=== PATIENT | female | born 1995 | race Hispanic/Latino ===

== ENCOUNTER 2017-10-14 10:06 | Observation (INO) | payer MEDICAID ==
[~2017-10-14] VITALS: Ht 167.6 cm; Wt 62.1 kg
[~2017-10-14 10:06] MED LIST: NITR100C4 PO
[2017-10-14 11:10] VITALS: BP 114/72
== END 2017-10-14 11:25 | disposition home or self-care (01) ==
LOC: EDH 10:06 → LDH 10:07
DX: O42.92 Full-term premature rupture of membranes, unspecified as to length of time between rupture and onset of labor (principal); Z3A.38 38 weeks gestation of pregnancy
CPT/HCPCS: 99285; G0378

== ENCOUNTER 2017-10-18 09:10 | Inpatient (IN) | payer MEDICAID ==
[2017-10-17 15:50] LABS: BASOPHILS % (AUTO) 0.5 % (0.0-5.0); EOSINOPHILS % (AUTO) 0.5 % (0.0-8.0); HEMATOCRIT 30.2 % (36-48); LYMPHOCYTES % (AUTO) 18.9 % (21.0-51.0); MEAN CORPUSCULAR HEMOGLOBIN 25.2 pg (27.0-33.0); MEAN CORPUSCULAR HGB CONC 32.8 g/dL (32.0-36.0); MEAN CORPUSCULAR VOLUME 77.1 fL (79-99); NEUTROPHILS % (AUTO) 72.1 % (40.0-77.0); NUCLEATED RED BLOOD CELLS 0.1 % (0.0-0.19); PLATELET COUNT (AUTO) 383 K/uL (130-400); RED BLOOD CELL COUNT(AUTO) 3.92 MIL/uL (4.00-5.50); RED CELL DISTRIBUTION WIDTH 16.6 % (11.0-15.5); WHITE BLOOD COUNT (AUTO) 8.7 K/uL (4.8-10.8)
[2017-10-17 16:04] LABS: CREATININE 0.6 mg/dL (0.5-1.5); POTASSIUM 3.9 mmol/L (3.5-5.1)
[2017-10-17 16:06] LABS: INR 0.88 (0.85-1.15); PARTIAL THROMBOPLASTIN TIME 23.3 SEC (26.3-35.5); PROTHROMBIN TIME 9.3 SEC (9.6-11.6)
[2017-10-17 16:08] LABS: ALBUMIN 2.5 g/dL (3.5-5.0); BILIRUBIN,TOTAL 0.3 mg/dL (0.2-1.0); TOTAL PROTEIN, SERUM 6.8 g/dL (6.0-8.3); URIC ACID 3.4 mg/dL (2.6-7.2)
[2017-10-18] MEDS ORDERED: CEFAZOLIN SODIUM 1 GM VIAL IVP PRN (09:30)
[2017-10-18] MEDS ORDERED: CALDOLOR 800MG+NS 250ML 250 ML IV PRN (09:30)
[2017-10-18] MEDS ORDERED: OXYTOCIN 10 USP UNITS/ML ONE ×3 (10:54→14:18)
[2017-10-18] MEDS ORDERED: LACTATED RINGERS 1000ML 1,000 ML IV ONE ×2 (10:58→13:58)
[2017-10-18] MEDS ORDERED: DURAMORPH PF1 MG/ML 10ML AMP IV ONE (12:05)
[2017-10-18] MEDS ORDERED: FENTANYL CITRATE PF 50 MCG/1 ML 2ML VIAL ONE (12:05)
[2017-10-18] MEDS ORDERED: OXYTOCIN-LR 20 UNITS/1000 ML 1,000 ML IV PRN ×2 (13:13→16:48)
[2017-10-18] MEDS ORDERED: DIPH,PERTUSS(ACELL),TET VAC/PF 0.5 ML VIAL IM PRN (13:15)
[2017-10-18] MEDS ORDERED: SODIUM CHLORIDE 0.9% 10 ML VIAL IVP PRN ×2 (13:15→17:00)
[2017-10-18] MEDS ORDERED: BUTORPHANOL TARTRATE 2 MG/ML ONE (13:17)
[2017-10-18] MEDS ORDERED: PHENYLEPHRINE HCL 10 MG/ML 1ML VIAL IV ONE (14:18)
[2017-10-18] MEDS ORDERED: ONDANSETRON HCL 4 MG/2 ML VIAL ONE (14:18)
[2017-10-18 16:05] VITALS: BP 104/62
[2017-10-18] MEDS ORDERED: MEPERIDINE-PF 75 MG/ML SYG IM PRN (17:00)
[2017-10-18] MEDS ORDERED: DEXTROSE 5 %-0.45 % NACL 1,000 ML IV PRN (17:00)
[2017-10-18] MEDS ORDERED: PROMETHAZINE HCL 25 MG/ML 1ML AMPULE IM PRN ×2 (17:00→18:45)
[2017-10-18] MEDS ORDERED: DiphenhydrAMINE HCL 50 MG/ML VIAL IVP PRN (18:45)
[2017-10-18] MEDS ORDERED: ONDANSETRON HCL 4 MG/2 ML VIAL IVP PRN (18:45)
[2017-10-18] MEDS ORDERED: HYDROCODONE/ACETAMINOPHEN 5/325 MG TAB PO PRN (18:45)
[2017-10-18] MEDS ORDERED: MORPHINE SULFATE 2 MG/ML 1ML SYG IVP PRN (18:45)
[2017-10-18] MEDS ORDERED: EPHEDRINE SULFATE 50 MG/ML AMPULE IVP PRN (18:45)
[2017-10-18] MEDS ORDERED: NALOXONE HCL 0.4 MG/1 ML ML IVP PRN ×2 (18:45)
[2017-10-18] MEDS ORDERED: ONDANSETRON HCL 4 MG/2 ML 8 MG in SODIUM CHLORIDE 0.9% 50 ML IVP NR (18:45)
[2017-10-18] MEDS ORDERED: METOCLOPRAMIDE 10 MG/2 ML VIAL IVP PRN (18:45)
[2017-10-18 19:56] VITALS: BP 112/60
[2017-10-18] MEDS ORDERED: CEFAZOLIN SODIUM 1 GM VIAL IVP SCH (20:15)
[2017-10-18] MEDS ORDERED: CEFAZOLIN 2GM / 50 ML 50 ML IV SCH (20:15)
[2017-10-18] MEDS: ONDANSETRON HCL 4 MG/2 ML VIAL IVP PRN (21:01)
[2017-10-18] MEDS: HYDROCODONE/ACETAMINOPHEN 5/325 MG TAB PO PRN (21:02)
[2017-10-18] MEDS: CALDOLOR 800MG+NS 250ML 250 ML IV SCH (21:25)
[2017-10-18] MEDS: DEXTROSE 5 %-0.45 % NACL 1,000 ML IV PRN (21:28)
[2017-10-18 23:31] VITALS: BP 104/64
[2017-10-19] MEDS ORDERED: CEFAZOLIN 2GM / 50 ML 50 ML IV SCH
[2017-10-19] MEDS ORDERED: CALDOLOR 800MG+NS 250ML 250 ML IV SCH (01:00)
[2017-10-19] MEDS: ONDANSETRON HCL 4 MG/2 ML VIAL IVP PRN (01:52)
[2017-10-19 02:49] VITALS: BP 116/65
[2017-10-19] MEDS: CALDOLOR 800MG+NS 250ML 250 ML IV SCH (04:41)
[2017-10-19 06:15] LABS: HEPATITIS Bs ANTIGEN SCREEN P Negative (Negative)
[2017-10-19] MEDS: DEXTROSE 5 %-0.45 % NACL 1,000 ML IV PRN (06:52)
[2017-10-19 06:55] LABS: HEMATOCRIT 25.6 % (36-48); MEAN CORPUSCULAR HEMOGLOBIN 25.1 pg (27.0-33.0); MEAN CORPUSCULAR HGB CONC 32.3 g/dL (32.0-36.0); MEAN CORPUSCULAR VOLUME 77.8 fL (79-99); PLATELET COUNT (AUTO) 263 K/uL (130-400); RED BLOOD CELL COUNT(AUTO) 3.29 MIL/uL (4.00-5.50); WHITE BLOOD COUNT (AUTO) 9.6 K/uL (4.8-10.8)
[2017-10-19 08:15] VITALS: BP 101/54
[2017-10-19] MEDS ORDERED: ACETAMINOPHEN-CODEINE 300/30MG TAB PO PRN (09:00)
[2017-10-19] MEDS ORDERED: DIPHENHYDRAMINE HCL 25 MG CAPSULE PO PRN (09:00)
[2017-10-19] MEDS ORDERED: LANOLIN 30GM OINTMENT TP PRN (09:00)
[2017-10-19] MEDS ORDERED: BISACODYL 10 MG SUPP.RECT RC PRN (09:00)
[2017-10-19] MEDS: LIDOCAINE 5% TOPICAL PATCH TP SCH ×2 (09:12→10:07)
[2017-10-19] MEDS: SIMETHICONE 80 MG TAB.CHEW PO PRN ×4 (09:12→20:36)
[2017-10-19] MEDS: DOCUSATE SODIUM 100 MG CAP PO SCH ×2 (09:12→20:36)
[2017-10-19] MEDS: HYDROCODONE/ACETAMINOPHEN 5/325 MG TAB PO PRN (09:15)
[2017-10-19 12:16] VITALS: BP 105/66
[2017-10-19] MEDS: IBUPROFEN 800 MG TAB PO SCH (15:24)
[2017-10-19 15:51] VITALS: BP 99/59
[2017-10-19] MEDS: ACETAMINOPHEN-CODEINE 300/30MG TAB PO PRN (18:22)
[2017-10-19] MEDS: DIPH,PERTUSS(ACELL),TET VAC/PF 0.5 ML VIAL IM SCH (18:42)
[2017-10-19 19:35] VITALS: BP 108/69
[2017-10-19 23:30] VITALS: BP 115/63
[2017-10-20] MEDS: IBUPROFEN 800 MG TAB PO SCH ×2 (00:20→08:44)
[2017-10-20] MEDS: ACETAMINOPHEN-CODEINE 300/30MG TAB PO PRN (03:07)
[2017-10-20 03:10] VITALS: BP 122/78
[2017-10-20 07:40] VITALS: BP 144/78
[2017-10-20] MEDS: SIMETHICONE 80 MG TAB.CHEW PO PRN ×2 (08:42→13:07)
[2017-10-20] MEDS: DOCUSATE SODIUM 100 MG CAP PO SCH (08:42)
[2017-10-20] MEDS: LIDOCAINE 5% TOPICAL PATCH TP SCH (08:46)
[2017-10-20] MEDS: DIPH,PERTUSS(ACELL),TET VAC/PF 0.5 ML VIAL IM SCH (09:00)
[2017-10-20 11:46] VITALS: BP 121/70
[2017-10-20] MEDS ORDERED: DOCU240C80 PO (13:40)
[2017-10-20] MEDS ORDERED: MO8B PO (13:41)
[2017-10-20] MEDS ORDERED: ACET1TAB12 PO (13:42)
== END 2017-10-20 14:15 | disposition home or self-care (01) | DRG 540 ==
LOC: LDH 09:10 → WSH 15:20
PROC: 3E0234Z Introduction of Serum, Toxoid and Vaccine into Muscle, Percutaneous Approach (ICD-10-PCS; 2017-10-18)
PROC: 10D00Z1 Extraction of Products of Conception, Low, Open Approach (ICD-10-PCS; principal; 2017-10-18 12:00)
DX: O36.5930 Maternal care for other known or suspected poor fetal growth, third trimester, not applicable or unspecified (principal); O41.03X0 Oligohydramnios, third trimester, not applicable or unspecified; O34.211 Maternal care for low transverse scar from previous cesarean delivery; D64.89 Other specified anemias; O99.02 Anemia complicating childbirth; Z3A.38 38 weeks gestation of pregnancy; Z37.0 Single live birth; Z23 Encounter for immunization
CPT/HCPCS: 36415; 59510; 80053; 84550; 85025; 85027; 85384; 85610; 85730; 86592; 86850; 86900; 86901; 87340; 90715; A4218; A4344; A4606; J0595; J0690; J1741; J2274; J2370; J2405; J2590; J3010; J7120; Q0163

== ENCOUNTER 2018-05-20 11:06 | Day surgery (SDC) | payer MEDICAID ==
[~2018-05-20] VITALS: Ht 170.2 cm; Wt 51.5 kg
[~2018-05-20 11:06] MED LIST changes: +ACET1TAB12 PO; +DOCU240C80 PO; +GLYCOPYRROLATE 0.2 MG/ML 5 ML VIAL ONE; +LIDOCAINE HCL-MPF 2% 5ML VIAL ONE; +MO8B PO; -NITR100C4 PO; +PROPOFOL 10 MG/ML 20ML VIAL IV ONE; +SUCCINYLCHOLINE CHLORIDE 20 MG/ML 10 ML VIAL ONE
[2018-05-20 11:53] VITALS: BP 93/57
[2018-05-20] MEDS ORDERED: SODIUM CHLORIDE 0.9% 1000ML 1,000 ML IV ONE (12:20)
[2018-05-20 12:40] VITALS: BP 82/40
[2018-05-20 12:45] VITALS: BP 87/45
[2018-05-20 12:50] VITALS: BP 97/56
[2018-05-20 12:55] VITALS: BP 98/58
[2018-06-10] MEDS ORDERED: LIDOCAINE HCL (10:33)
[2018-06-10] MEDS ORDERED: SENN-107 PO (10:33)
== END 2018-05-20 13:25 | disposition home or self-care (01) ==
LOC: DAH 11:06
PROVIDERS: ATTEND Internal Medicine Gastroenterology
DX: K29.50 Unspecified chronic gastritis without bleeding (principal); K31.89 Other diseases of stomach and duodenum; J45.909 Unspecified asthma, uncomplicated; F41.9 Anxiety disorder, unspecified; F32.9 Major depressive disorder, single episode, unspecified; D64.9 Anemia, unspecified; K62.89 Other specified diseases of anus and rectum; K64.9 Unspecified hemorrhoids; Z80.0 Family history of malignant neoplasm of digestive organs; Z98.890 Other specified postprocedural states; Z90.89 Acquired absence of other organs
CPT/HCPCS: 36415; 43239; 84703; 88305; 88312; 88342; A4606; J0330; J2704; J3490 ×2; J7030

== ENCOUNTER 2019-07-14 22:16 | Emergency (ER) | payer MEDICAID, OTHER ==
[~2019-07-14 22:16] MED LIST changes: -ACET1TAB12 PO; -DOCU240C80 PO; -GLYCOPYRROLATE 0.2 MG/ML 5 ML VIAL ONE; +LIDOCAINE HCL; -LIDOCAINE HCL-MPF 2% 5ML VIAL ONE; -MO8B PO; -PROPOFOL 10 MG/ML 20ML VIAL IV ONE; +SENN-107 PO; -SUCCINYLCHOLINE CHLORIDE 20 MG/ML 10 ML VIAL ONE
== END 2019-07-14 23:17 | disposition home or self-care (01) ==
LOC: EDH 22:16
DX: M25.532 Pain in left wrist (principal); M79.632 Pain in left forearm; D64.9 Anemia, unspecified; F41.9 Anxiety disorder, unspecified
CPT/HCPCS: 99281

== ENCOUNTER 2020-05-13 09:31 | Emergency (ER) | payer MEDICAID ==
[2020-05-13 10:06] LABS: BASOPHILS % (AUTO) 0.6 % (0.0-5.0); EOSINOPHILS % (AUTO) 1.2 % (0.0-8.0); HEMATOCRIT 42.5 % (36-48); LYMPHOCYTES % (AUTO) 23.4 % (21.0-51.0); MEAN CORPUSCULAR HEMOGLOBIN 30.1 pg (27.0-33.0); MEAN CORPUSCULAR HGB CONC 33.2 g/dL (32.0-36.0); MEAN CORPUSCULAR VOLUME 90.8 fL (79-99); MONOCYTES % (AUTO) 6.7 % (3.0-13.0); PLATELET COUNT (AUTO) 331 K/uL (130-400); RED BLOOD CELL COUNT(AUTO) 4.68 MIL/uL (4.00-5.50); RED CELL DISTRIBUTION WIDTH 12.6 % (11.0-15.5)
[2020-05-13 10:16] LABS: APPEARANCE,URINE Clear (CLEAR); BILIRUBIN,URINE Negative (NEGATIVE); COLOR,URINE Yellow (YELLOW); GLUCOSE, URINE (UA) Negative (NEGATIVE); HCG,QUAL RESULT POSITIVE (NEGATIVE); KETONES,URINE Negative (NEGATIVE); LEUKOCYTE ESTERASE ,URINE Trace (NEGATIVE); NITRATE,URINE Negative (NEGATIVE); OCCULT BLOOD,URINE Negative (NEGATIVE); PROTEIN,URINE Negative (NEGATIVE)
[2020-05-13 10:17] LABS: CARBON DIOXIDE 27 mmol/L (21-32); CHLORIDE 101 mmol/L (101-111); CREATININE 0.6 mg/dL (0.5-1.5); GLOMERULAR FILTR. RATE CALC 132 mL/min (>60); GLUCOSE,RANDOM 90 mg/dL (70-105); POTASSIUM 3.8 mmol/L (3.5-5.1); SODIUM SERUM 137 mmol/L (136-145); UREA NITROGEN, BLOOD 6 mg/dL (7-18)
[2020-05-13 10:25] LABS: BACTERIA,URINE Rare /HPF (None Seen); RBC,URINE 0-1 /HPF (0-1); SQUAMOUS EPITHELIAL CELL,UR Rare /HPF (0-2); WBC,URINE 0-1 /HPF (0-1)
[2020-05-13 10:43] LABS: ALANINE AMINOTRANSFERASE 12 U/L (12-78); ASPARTATE AMINOTRANSFERASE 12 U/L (10-37); BILIRUBIN,DIRECT < 0.1 mg/dL (0.0-0.3); BILIRUBIN,TOTAL 0.2 mg/dL (0.2-1.0); CREATINE KINASE, TOTAL 41 U/L (21-232); HCG,QUANTITATIVE 57792 mIU/mL (0-5); TOTAL PROTEIN, SERUM 7.6 g/dL (6.0-8.3)
== END 2020-05-13 11:51 | disposition home or self-care (01) ==
LOC: EDH 09:31
DX: O20.0 Threatened abortion (principal); Z87.891 Personal history of nicotine dependence; Z3A.01 Less than 8 weeks gestation of pregnancy
CPT/HCPCS: 36415; 76801; 80048; 80076; 81001; 81025; 82550; 84702; 85025

== ENCOUNTER 2020-11-25 11:47 | Observation (INO) | payer MEDICAID ==
[~2020-11-25] VITALS: Ht 167.6 cm; Wt 68.9 kg
[2020-11-25] MEDS ORDERED: CEFAZOLIN SODIUM 1 GM VIAL IVP SCH (12:00)
[2020-11-25] MEDS: LACTATED RINGERS 1000ML 1,000 ML IV SCH ×2 (13:23→13:55)
[2020-11-25] MEDS ORDERED: TERBUTALINE SULFATE VIAL 1MG/ML SQ ONE (13:28)
[2020-11-25] MEDS ORDERED: TERBUTALINE SULFATE VIAL 1MG/ML SQ PRN (13:30)
== END 2020-11-25 15:41 | disposition home or self-care (01) ==
LOC: LDH 11:47
PROVIDERS: ADMIT Specialist; ATTEND Specialist
DX: O62.9 Abnormality of forces of labor, unspecified (principal); O26.893 Other specified pregnancy related conditions, third trimester; L29.9 Pruritus, unspecified; Z3A.34 34 weeks gestation of pregnancy
CPT/HCPCS: 59025; 76819; 96361; 96372; 96374; G0378 ×4; J0690; J3105; J7120 ×2

== ENCOUNTER 2020-11-29 11:15 | Observation (INO) | payer MEDICAID ==
[~2020-11-29] VITALS: Ht 167.6 cm; Wt 69.9 kg
== END 2020-11-29 13:22 | disposition home or self-care (01) ==
LOC: LDH 11:15
PROVIDERS: ADMIT Specialist; ATTEND Specialist
DX: Z34.93 Encounter for supervision of normal pregnancy, unspecified, third trimester (principal); Z3A.35 35 weeks gestation of pregnancy
CPT/HCPCS: 59025; 76819; G0378 ×2

== ENCOUNTER 2020-12-02 11:53 | Observation (INO) | payer MEDICAID | END 2020-12-02 14:30 | disposition home or self-care (01) | LOC: LDH 11:53 | PROVIDERS: ADMIT Specialist; ATTEND Specialist | DX: Z34.93 Encounter for supervision of normal pregnancy, unspecified, third trimester (principal); Z3A.35 35 weeks gestation of pregnancy | CPT/HCPCS: 59025; 76819; G0378 ×3 ==

== ENCOUNTER 2020-12-22 09:33 | Inpatient (IN) | payer MEDICAID ==
[~2020-12-22] VITALS: Ht 167.6 cm; Wt 70.8 kg
[2020-12-23] MEDS ORDERED: LACTATED RINGERS 1000ML 1,000 ML IV SCH (14:45)
[2020-12-23] MEDS ORDERED: CEFAZOLIN SODIUM 1 GM VIAL IVP PRN (14:45)
[2020-12-23] MEDS ORDERED: OXYTOCIN-LR 20 UNITS/1000 ML 1,000 ML IV SCH (14:45)
[2020-12-23 15:23] LABS: HEMATOCRIT 32.9 % (36-48); MEAN CORPUSCULAR HEMOGLOBIN 24.6 pg (27.0-33.0); MEAN CORPUSCULAR HGB CONC 30.1 g/dL (32.0-36.0); MEAN CORPUSCULAR VOLUME 81.8 fL (79-99); PLATELET COUNT (AUTO) 339 K/uL (130-400); RED BLOOD CELL COUNT(AUTO) 4.02 MIL/uL (4.00-5.50); RED CELL DISTRIBUTION WIDTH 14.7 % (11.0-15.5)
[2020-12-23 15:54] VITALS: BP 122/71
[2020-12-23] MEDS ORDERED: FENTANYL CITRATE PF 50 MCG/1 ML 2ML VIAL ONE (16:15)
[2020-12-23] MEDS ORDERED: MORPHINE PF 100MG/10ML AMP IV ONE (16:15)
[2020-12-23] MEDS ORDERED: OXYTOCIN 10 UNIT/1ML 10ML VIAL ONE (16:15)
[2020-12-23] MEDS ORDERED: CEFAZOLIN SODIUM 1 GM VIAL IVP ONE (16:20)
[2020-12-23] MEDS ORDERED: ONDANSETRON 4MG INJ ONE (16:26)
[2020-12-23] MEDS ORDERED: OXYTOCIN 10 USP UNITS/ML ONE ×2 (16:27→17:03)
[2020-12-23] MEDS ORDERED: PHENYLEPHRINE HCL 10 MG/ML 1ML VIAL IV ONE (16:46)
[2020-12-23] MEDS ORDERED: DiphenhydrAMINE HCL 50 MG/ML VIAL ONE (17:09)
[2020-12-23] MEDS ORDERED: 0.9%NACL 10ML VIAL IVP PRN (17:30)
[2020-12-23] MEDS ORDERED: PROMETHAZINE HCL 25 MG/ML 1ML AMPULE IM PRN (17:30)
[2020-12-23] MEDS ORDERED: MEPERIDINE-PF 75 MG/ML SYG IM PRN (17:30)
[2020-12-23] MEDS ORDERED: OXYTOCIN-LR 20 UNITS/1000 ML 1,000 ML IV PRN (17:30)
[2020-12-23] MEDS ORDERED: LORATADINE 10 MG TABLET ONE (18:07)
[2020-12-23 19:22] VITALS: BP 106/66
[2020-12-23] MEDS ORDERED: ONDANSETRON 4MG INJ IVP PRN (19:30)
[2020-12-23] MEDS ORDERED: NALOXONE HCL 0.4 MG/1 ML ML IVP PRN ×3 (19:30)
[2020-12-23] MEDS ORDERED: DiphenhydrAMINE HCL 50 MG/ML VIAL IVP PRN (19:30)
[2020-12-23] MEDS ORDERED: LORATADINE 10 MG TABLET PO PRN (19:30)
[2020-12-23] MEDS ORDERED: KETOROLAC 30MG VIAL (30MG/ML) IV PRN (19:30)
[2020-12-23 23:47] VITALS: BP 108/69
[2020-12-24] MEDS: DEXTROSE 5 %-0.45 % NACL 1,000 ML IV PRN ×2 (02:26→07:47)
[2020-12-24 04:31] VITALS: BP 113/65
[2020-12-24 06:32] LABS: HEMATOCRIT 29.4 % (36-48); MEAN CORPUSCULAR HEMOGLOBIN 24.2 pg (27.0-33.0); MEAN CORPUSCULAR HGB CONC 29.3 g/dL (32.0-36.0); MEAN CORPUSCULAR VOLUME 82.6 fL (79-99); RED BLOOD CELL COUNT(AUTO) 3.56 MIL/uL (4.00-5.50); RED CELL DISTRIBUTION WIDTH 14.8 % (11.0-15.5); WHITE BLOOD COUNT (AUTO) 10.8 K/uL (4.8-10.8)
[2020-12-24 07:02] VITALS: BP 116/66
[2020-12-24] MEDS ORDERED: BISACODYL 10 MG SUPP.RECT RC PRN (07:30)
[2020-12-24] MEDS ORDERED: ACETAMINOPHEN 500 MG TABLET PO PRN (07:30)
[2020-12-24] MEDS ORDERED: LANOLIN 30GM OINTMENT TP PRN (07:30)
[2020-12-24] MEDS ORDERED: ACETAMINOPHEN WITH CODEINE 1 TAB TAB PO PRN (07:30)
[2020-12-24] MEDS ORDERED: IBUPROFEN 600 MG TABLET PO PRN (07:30)
[2020-12-24] MEDS: DOCUSATE SODIUM 100 MG CAP PO SCH ×2 (08:15→20:46)
[2020-12-24] MEDS: SIMETHICONE 80 MG TAB.CHEW PO PRN ×3 (08:15→17:41)
[2020-12-24] MEDS: HYDROCODONE/ACETAMINOPHEN 5/325 MG TAB PO PRN ×2 (08:16→14:46)
[2020-12-24 11:00] VITALS: BP 102/59
[2020-12-24 16:00] VITALS: BP 102/71
[2020-12-24] MEDS: IBUPROFEN 800 MG TAB PO SCH (17:48)
[2020-12-24] MEDS ORDERED: DIPH,PERTUSS(ACELL),TET VAC/PF 0.5 ML VIAL IM ONE ×2 (18:19→19:29)
[2020-12-24 20:30] VITALS: BP 122/67
[2020-12-24 23:30] VITALS: BP 101/65
[2020-12-25] MEDS: IBUPROFEN 800 MG TAB PO SCH ×2 (02:22→09:33)
[2020-12-25 03:46] VITALS: BP 107/67
[2020-12-25 03:54] VITALS: BP 123/74
[2020-12-25 07:45] VITALS: BP 114/65
[2020-12-25] MEDS: DOCUSATE SODIUM 100 MG CAP PO SCH (09:15)
[2020-12-25] MEDS: SIMETHICONE 80 MG TAB.CHEW PO PRN (09:15)
[2020-12-25 11:15] VITALS: BP 117/73
[2020-12-25 15:09] LABS: HEPATITIS Bs ANTIGEN SCREEN P Negative (Negative)
== END 2020-12-25 11:35 | disposition home or self-care (01) | DRG 540 ==
LOC: LDH 12-23 14:16 → WSH 12-23 19:20
PROVIDERS: ADMIT Specialist; ATTEND Specialist
PROC: 0UB70ZZ Excision of Bilateral Fallopian Tubes, Open Approach (ICD-10-PCS; 2020-12-23)
PROC: 10D00Z1 Extraction of Products of Conception, Low, Open Approach (ICD-10-PCS; principal; 2020-12-23 16:00)
PROC: 3E0234Z Introduction of Serum, Toxoid and Vaccine into Muscle, Percutaneous Approach (ICD-10-PCS; 2020-12-24)
DX: O34.211 Maternal care for low transverse scar from previous cesarean delivery (principal); Z3A.38 38 weeks gestation of pregnancy; Z37.0 Single live birth; Z30.2 Encounter for sterilization; Z20.822 Contact with and (suspected) exposure to COVID-19; Z23 Encounter for immunization
CPT/HCPCS: 36415; 59510; 85027; 86592; 86850; 86900; 86901; 87340; 88302; 90715; A4344; G0378; J0690; J1200; J1885; J2175; J2274; J2370; J2405; J2550; J2590; J3010; J7120; U0003

== ENCOUNTER 2024-06-30 00:23 | Emergency (ER) | payer SELFPAY ==
[~2024-06-30] VITALS: Ht 167.6 cm; Wt 72.6 kg
[2024-06-30 00:59] LABS: BASOPHILS # (AUTO) 0.06 K/uL (0.00-0.20); BASOPHILS % (AUTO) 0.6 % (0.0-5.0); EOSINOPHILS % (AUTO) 3.1 % (0.0-8.0); HEMATOCRIT 39.7 % (36-48); IMMATURE GRANULOCYTE ABSOLUTE 0.02 K/uL (0-1); LYMPHOCYTES # (AUTO) 3.1 K/uL (1.0-4.8); LYMPHOCYTES % (AUTO) 31.3 % (21.0-51.0); MEAN CORPUSCULAR HEMOGLOBIN 30.3 pg (27.0-33.0); MEAN CORPUSCULAR HGB CONC 33.5 g/dL (32.0-36.0); MEAN CORPUSCULAR VOLUME 90.4 fL (79-99); MONOCYTES # (AUTO) 0.8 K/uL (0.1-1.0); MONOCYTES % (AUTO) 8.5 % (3.0-13.0); NEUTROPHILS # (AUTO) 5.5 K/uL (1.8-7.7); NEUTROPHILS % (AUTO) 56.3 % (40.0-77.0); PLATELET COUNT (AUTO) 370 K/uL (130-400); RED BLOOD CELL COUNT(AUTO) 4.39 MIL/uL (4.00-5.50); RED CELL DISTRIBUTION WIDTH 12.5 % (11.0-15.5); WHITE BLOOD COUNT (AUTO) 9.8 K/uL (4.8-10.8)
[2024-06-30 01:01] LABS: APPEARANCE,URINE CLEAR (CLEAR); BILIRUBIN,URINE NEGATIVE (NEGATIVE); COLOR,URINE LIGHT-YELLOW (YELLOW); GLUCOSE, URINE (UA) NEGATIVE (NEGATIVE); KETONES,URINE NEGATIVE (NEGATIVE); LEUKOCYTE ESTERASE ,URINE NEGATIVE Leu/uL (NEGATIVE); NITRATE,URINE NEGATIVE (NEGATIVE); OCCULT BLOOD,URINE NEGATIVE (NEGATIVE); PROTEIN,URINE NEGATIVE (NEGATIVE); UROBILINOGEN,URINE 0.2 mg/dL (0.2-1.0)
[2024-06-30 01:02] LABS: ADD UA MICROSCOPIC NO
[2024-06-30 01:08] LABS: CREATININE 0.8 mg/dL (0.5-1.0); POTASSIUM 4.4 mmol/L (3.5-5.1)
[2024-06-30] MEDS ORDERED: PANT40TA55 PO (01:35)
[2024-06-30 01:48] VITALS: BP 139/66; PULSE 79; RESP 16; TEMP 98.2; O2SAT 100
== END 2024-06-30 01:56 | disposition home or self-care (01) ==
LOC: EDH 00:23
DX: A08.4 Viral intestinal infection, unspecified (principal); Z90.49 Acquired absence of other specified parts of digestive tract
CPT/HCPCS: 36415; 80048; 81003; 83690; 85025; 93005